=== PATIENT | male | born 1940 | race Caucasian/White ===

== ENCOUNTER → 2021-08-03 | Day surgery (SDC) | payer MEDICARE, OTHER ==
[~2021-08-03] VITALS: Ht 180.3 cm; Wt 85.7 kg
[~2021-08-03] MED LIST: ALFUZOSIN HCL E10 MG PO; ARICEPT 5MG TABL5 MG PO; MAXIMUM DAILY1 EAC1 PO; MOBIC7.5 MG PO; MYSOLINE50 MG PO; NORVASC5 MG PO; PENTASA250 MG PO; PROSCAR5 MG PO; VITAMIN D350 MC3 PO; ZOLOFT50 MG PO
== END | disposition home or self-care (01) ==
LOC: FAS 09:14
DX: D17.1 Benign lipomatous neoplasm of skin and subcutaneous tissue of trunk (principal); F41.9 Anxiety disorder, unspecified; H26.9 Unspecified cataract; F32.9 Major depressive disorder, single episode, unspecified; I10 Essential (primary) hypertension; F03.90 Unspecified dementia, unspecified severity, without behavioral disturbance, psychotic disturbance, mood disturbance, and anxiety; M19.90 Unspecified osteoarthritis, unspecified site; Z87.891 Personal history of nicotine dependence; Z79.899 Other long term (current) drug therapy
CPT/HCPCS: J2704; J7120